=== PATIENT | male | born 1965 | race Caucasian/White ===

== ENCOUNTER 2017-11-30 11:42 | Outpatient (CLI) | payer BC ==
--- NOTE | 2017-11-30 14:54 | Ultrasound Report ---
ULTRASOUND RENAL BILATERAL HISTORY: Calculus of kidney. TECHNIQUE: transabdominal ultrasound with color Doppler interrogation. FINDINGS: The right kidney measures 11.1cm. Right renal cortex: 1.3cm. The left kidney measures 11.6cm. Left renal cortex: 1.5cm. Scans of the kidneys show normal renal contours. There is normal central calyceal clustering and good preservation of the cortical thickness. There is no evidence of mass or hydronephrosis. The views of the bladder and the region of the ureters appear normal. IMPRESSION: Unremarkable renal ultrasound.
--- NOTE | 2017-11-30 19:33 | XRay Report ---
FINAL REPORT EXAM: XR ABDOMEN 1V AP HISTORY: CALCULUS OF KIDNEY TECHNIQUE: Supine abdomen PRIORS: None. FINDINGS: Moderate amount of stool and gas present within the colon. No evidence of colonic or small bowel dilatation. No signs of free air. No abnormal calcifications are identified. Rounded calcifications in the lower pelvis appear most likely phleboliths. IMPRESSION: Nonobstructive bowel gas pattern. No acute abnormality seen.
== END 2017-11-30 11:43 | disposition home or self-care (01) ==
LOC: XRAY 11:42
PROVIDERS: ATTEND Urology
DX: N20.0 Calculus of kidney (principal)
CPT/HCPCS: 74018; 76770

== ENCOUNTER 2019-04-09 08:48 | Outpatient (CLI) | payer BC ==
[2019-04-09 09:04] LABS: Basophils % (Auto) 0.7 % (0.0-1.8); Eosinophils # (Auto) 0.2 K/mm3 (0.0-0.4); Eosinophils % (Auto) 2.9 % (0.0-4.3); Hemoglobin 14.1 gm/dl (11.8-15.2); Lymphocytes # (Auto) 1.7 K/mm3 (1.2-5.4); Lymphocytes % (Auto) 30.2 % (13.4-35.0); Mean Corpuscular HGB Conc 34 % (32-34); Mean Corpuscular Volume 79 fl (84-94); Monocytes # (Auto) 0.5 K/mm3 (0.0-0.8); Monocytes % (Auto) 9.3 % (0.0-7.3); Platelet Count 216 K/mm3 (140-440); Red Blood Count 5.32 M/mm3 (3.65-5.03); Red Cell Distribution Width 14.5 % (13.2-15.2)
[2019-04-09 09:25] LABS: Alanine Aminotransferase 38 units/L (7-56); Albumin 4.4 g/dL (3.9-5); BUN/Creatinine Ratio 12; Blood Urea Nitrogen 12 mg/dL (9-20); Chol/HDL Ratio 3.08 %; HDL Cholesterol 46 mg/dL (40-59); Hemolysis Index 5; LDL Cholesterol,Direct 80 mg/dL (50-130)
== END 2019-04-09 08:49 | disposition home or self-care (01) ==
LOC: LAB 08:48
PROVIDERS: ATTEND Nurse Practitioner Family
DX: Z12.5 Encounter for screening for malignant neoplasm of prostate (principal); I10 Essential (primary) hypertension; E78.2 Mixed hyperlipidemia
CPT/HCPCS: 36415; 80053; 80061; 84153; 85025

== ENCOUNTER 2019-07-03 11:35 | Emergency (ER) | payer BC ==
--- NOTE | 2019-07-03 12:00 | Event Note ---
ED Screening Note Date of service: 07/03/19 Time: 11:59 ED Screening Note: PMH of kidney stone presenst with flank pain This initial assessment/diagnostic orders/clinical plan/treatment(s) is/are subject to change based on patients health status, clinical progression and re- assessment by fellow clinical providers in the ED. Further treatment and workup at subsequent clinical providers discretion. Patient/guardian urged not to elope from the ED as their condition may be serious if not clinically assessed and managed. Initial orders include: labs CT
[2019-07-03 12:14] LABS: Bilirubin,Urine NEG (Negative); Blood,Urine MOD (Negative); Color,Urine Yellow (Yellow); Mucus,Urine FEW /HPF; Protein,Urine <15 mg/dL mg/dL (Negative); Urobilinogen,Urine < 2.0 mg/dL (<2.0)
[2019-07-03 12:23] LABS: Basophils % (Auto) 0.6 % (0.0-1.8); Eosinophils # (Auto) 0.2 K/mm3 (0.0-0.4); Eosinophils % (Auto) 2.5 % (0.0-4.3); Hemoglobin 14.1 gm/dl (11.8-15.2); Lymphocytes # (Auto) 1.4 K/mm3 (1.2-5.4); Lymphocytes % (Auto) 20.1 % (13.4-35.0); Mean Corpuscular HGB Conc 34 % (32-34); Mean Corpuscular Volume 79 fl (84-94); Monocytes # (Auto) 0.5 K/mm3 (0.0-0.8); Monocytes % (Auto) 7.3 % (0.0-7.3); Platelet Count 210 K/mm3 (140-440); Red Blood Count 5.31 M/mm3 (3.65-5.03); Red Cell Distribution Width 14.1 % (13.2-15.2)
[2019-07-03 12:40] LABS: BUN/Creatinine Ratio 9; Blood Urea Nitrogen 9 mg/dL (9-20); Calcium 9.9 mg/dL (8.4-10.2); Hemolysis Index 2
[2019-07-03] MEDS ORDERED: NORCO 10/325 PO ONE (13:07)
[2019-07-03] MEDS ORDERED: ZOFRAN ODT PO ONE (13:07)
--- NOTE | 2019-07-03 13:42 | Cat Scan Report ---
CT ABDOMEN AND PELVIS WITHOUT CONTRAST INDICATION: Unspecified abdominal pain. History of kidney stones. COMPARISON: KUB from 11/30/2017. CT abdomen and pelvis without contrast from 02/17/2016. TECHNIQUE: Axial, coronal and sagittal CT imaging of the abdomen and pelvis was performed without co ntrast. Lack of intravenous contrast limits evaluation of the vascular and solid organs. All CT sca ns at this location are performed using CT dose reduction for ALARA by means of automated exposure co ntrol. FINDINGS: LOWER CHEST: No significant abnormality. LIVER: No significant abnormality. BILIARY: No significant abnormality. PANCREAS: No significant abnormality. SPLEEN: No significant abnormality. ADRENALS: No significant abnormality. KIDNEYS AND URETERS: Along the mid pole of the right kidney is a stone measuring 4 mm. Left renal sto [place] measure up to 2 mm. No ureteral stones are seen. There is no hydroureteronephrosis. No suspicious renal lesions are visualized. GI TRACT: No significant abnormality of the stomach, small bowel or colon. Unremarkable appendix. PERITONEUM: No free fluid. No free air. No fluid collection. LYMPH NODES: No significant adenopathy. VASCULATURE: The aorta is normal in caliber and mildly calcified. URINARY BLADDER: No significant abnormality. REPRODUCTIVE ORGANS: No significant abnormality. ADDITIONAL FINDINGS: None. SKELETAL SYSTEM: No acute abnormality. Degenerative changes are present along the spine and pelvis. IMPRESSION: 1. Nonobstructive bilateral renal stones. 2. Additional findings as above. Signer Name: Km Ortez MD Signed: 07/03/2019 1:38 PM Workstation Name: [id number]
--- NOTE | 2019-07-03 13:58 | Emergency Department Report ---
ED General Adult HPI - General Chief complaint: Abdominal Pain Stated complaint: KIDNEY STONE Time Seen by Provider: 07/03/19 11:54 Source: patient Mode of arrival: Ambulatory Limitations: No Limitations - History of Present Illness Initial comments: She presents to the emergency department with a chief complaint of left flank pain that radiates into his left long. Patient describes the pain as colicky and sharp in nature and intermittent. Patient has a history of kidney stones and states this feels like previous ones. Patient did have some nausea but denies vomiting. Patient does follow with a neurologist -: Sudden Location: back, left Radiation: abdomen Severity scale (0 -10): 2 Quality: stabbing, sharp Consistency: intermittent, colicky Improves with: none Worsens with: none Associated Symptoms: denies other symptoms Treatments Prior to Arrival: none - Related Data Home Medications Medication Instructions Recorded Confirmed Last Taken Aspirin [Aspirin BABY CHEW TAB] 81 mg PO QDAY 02/17/16 02/17/16 Unknown Ciprofloxacin [Ciprofloxacin ORAL 500 mg PO Q12H 02/17/16 02/17/16 Unknown LIQ] Metoprolol [Lopressor] 100 mg PO ONCE 02/17/16 02/17/16 Unknown Rosuvastatin Calcium [Crestor] 40 mg PO ONCE 02/17/16 02/17/16 Unknown Previous Rx's Medication Instructions Recorded Last Taken Type traMADol [Ultram 50 MG tab] 50 mg PO Q6HR PRN #14 tablet 02/17/16 Unknown Rx HYDROcodone/APAP 5-325 [[place] 1 each PO Q6HR PRN #12 tablet 07/03/19 Unknown Rx 5/325] Ondansetron [Zofran Odt] 4 mg PO Q4HR PRN #20 tab.rapdis 07/03/19 Unknown Rx Allergies Allergy/AdvReac Type Severity Reaction Status Date / Time acetaminophen [From Percocet] AdvReac Unknown Verified 02/17/16 01:13 iodine AdvReac Unknown Verified 02/17/16 01:14 oxycodone HCl [From Percocet] AdvReac Unknown Verified 02/17/16 01:13 shellfish derived AdvReac Unknown Verified 02/17/16 01:14 ED Review of Systems ROS: Stated complaint: KIDNEY STONE Other details as noted in HPI Comment: All other systems reviewed and negative Constitutional: denies: chills, fever Eyes: denies: eye pain, eye discharge, vision change ENT: denies: ear pain, throat pain Respiratory: denies: cough, shortness of breath, wheezing Cardiovascular: denies: chest pain, palpitations Endocrine: no symptoms reported Gastrointestinal: denies: abdominal pain, nausea, diarrhea Genitourinary: denies: urgency, dysuria Musculoskeletal: denies: back pain, joint swelling, arthralgia Skin: denies: rash, lesions Neurological: denies: headache, weakness, paresthesias Psychiatric: denies: anxiety, depression Hematological/Lymphatic: denies: easy bleeding, easy bruising ED Past Medical Hx - Past Medical History Hx Hypertension: Yes Hx Heart Attack/AMI: Yes Hx Diabetes: Yes Hx Kidney Stones: Yes Additional medical history: GLAUCOMA. HIGH CHOLESTEROL - Surgical History Additional Surgical History: HERNIA REPAIR - Social History Smoking Status: Never Smoker Substance Use Type: None - Medications Home Medications: Home Medications Medication Instructions Recorded Confirmed Last Taken Type Aspirin [Aspirin BABY CHEW TAB] 81 mg PO QDAY 02/17/16 02/17/16 Unknown History Ciprofloxacin [Ciprofloxacin ORAL 500 mg PO Q12H 02/17/16 02/17/16 Unknown History LIQ] Metoprolol [Lopressor] 100 mg PO ONCE 02/17/16 02/17/16 Unknown History Rosuvastatin Calcium [Crestor] 40 mg PO ONCE 02/17/16 02/17/16 Unknown History traMADol [Ultram 50 MG tab] 50 mg PO Q6HR PRN #14 tablet 02/17/16 Unknown Rx HYDROcodone/APAP 5-325 [[place] 1 each PO Q6HR PRN #12 tablet 07/03/19 Unknown Rx 5/325] Ondansetron [Zofran Odt] 4 mg PO Q4HR PRN #20 tab.rapdis 07/03/19 Unknown Rx ED Physical Exam - General Limitations: No Limitations General appearance: alert, in no apparent distress - Head Head exam: Present: atraumatic, normocephalic - Eye Eye exam: Present: normal appearance, PERRL, EOMI - ENT ENT exam: Present: mucous membranes moist - Neck Neck exam: Present: normal inspection - Respiratory Respiratory exam: Present: normal lung sounds bilaterally. Absent: respiratory distress, wheezes, rales - Cardiovascular Cardiovascular Exam: Present: regular rate, normal rhythm. Absent: systolic murmur, diastolic murmur, rubs, gallop - GI/Abdominal GI/Abdominal exam: Present: soft, normal bowel sounds - Rectal Rectal exam: Present: deferred - Extremities Exam Extremities exam: Present: normal inspection - Back Exam Back exam: Present: normal inspection - Neurological Exam Neurological exam: Present: alert, oriented X3, CN II-XII intact. Absent: motor sensory deficit - Psychiatric Psychiatric exam: Present: normal affect, normal mood - Skin Skin exam: Present: warm, dry, intact, normal color. Absent: rash ED Course Vital Signs 07/03/19 11:41 Temperature 98.9 F Pulse Rate 89 Respiratory 18 Rate Blood Pressure 158/82 O2 Sat by Pulse 98 Oximetry ED Medical Decision Making - Lab Data Result diagrams: 07/03/19 12:10 07/03/19 12:10 Lab Results 07/03/19 07/03/19 07/03/19 Range/Units 11:57 12:10 12:10 WBC 6.9 (4.5-11.0) K/mm3 RBC 5.31 H (3.65-5.03) M/mm3 Hgb 14.1 (11.8-15.2) gm/dl Hct 42.0 (35.5-45.6) % MCV 79 L (84-94) fl MCH 27 L (28-32) pg MCHC 34 (32-34) % RDW 14.1 (13.2-15.2) % Plt Count 210 (140-440) K/mm3 Lymph % (Auto) 20.1 (13.4-35.0) % [place] % (Auto) 7.3 (0.0-7.3) % Eos % (Auto) 2.5 (0.0-4.3) % Baso % (Auto) 0.6 (0.0-1.8) % Lymph # 1.4 (1.2-5.4) K/mm3 [place] # 0.5 (0.0-0.8) K/mm3 Eos # 0.2 (0.0-0.4) K/mm3 Baso # 0.0 (0.0-0.1) K/mm3 Seg Neutrophils % 69.5 (40.0-70.0) % Seg Neutrophils # 4.8 (1.8-7.7) K/mm3 Sodium 140 (137-145) mmol/L Potassium 4.0 (3.6-5.0) mmol/L Chloride 101.0 (98-107) mmol/L Carbon Dioxide 27 (22-30) mmol/L Anion Gap 16 mmol/L BUN 9 (9-20) mg/dL Creatinine 1.0 (0.8-1.5) mg/dL Estimated GFR > 60 ml/min BUN/Creatinine Ratio 9 % Glucose 188 H (75-100) mg/dL Calcium 9.9 (8.4-10.2) mg/dL Urine Color Yellow (Yellow) Urine Turbidity Clear (Clear) Urine pH 5.0 (5.0-7.0) Ur Specific [place] 1.021 (1.003-1.030) Urine Protein <15 mg/dl (Negative) mg/dL Urine Glucose (UA) Neg (Negative) mg/dL Urine Ketones Neg (Negative) mg/dL Urine Blood Mod (Negative) Urine Nitrite Neg (Negative) Urine Bilirubin Neg (Negative) Urine Urobilinogen < 2.0 (<2.0) mg/dL Ur Leukocyte Esterase Neg (Negative) Urine WBC (Auto) 2.0 (0.0-6.0) /HPF Urine RBC (Auto) 27.0 (0.0-6.0) /HPF U Epithel Cells (Auto) 1.0 (0-13.0) /HPF Urine Mucus Few /HPF - Radiology Data Radiology results: report reviewed - Medical Decision Making discussed results with patient Critical care attestation.: If time is entered above; I have spent that time in minutes in the direct care of this critically ill patient, excluding procedure time. ED Disposition Clinical Impression: Renal colic on left side Disposition: DC- TO HOME OR SELFCARE Is pt being admited?: No Does the pt Need Aspirin: No Condition: Stable Instructions: Renal Colic (ED) Additional Instructions: return if worse Referrals: OMARI HENDRIX MD [Primary Care Provider] - 3-5 Days LUISA WEST MD [Staff Physician] - 3-5 Days Time of Disposition: 14:33
[2019-07-03 14:54] VITALS: BP 154/90
== END 2019-07-03 14:53 | disposition home or self-care (01) ==
LOC: ED 11:35
DX: N20.0 Calculus of kidney (principal); I10 Essential (primary) hypertension; E11.9 Type 2 diabetes mellitus without complications; Z87.442 Personal history of urinary calculi; E78.00 Pure hypercholesterolemia, unspecified; Z98.890 Other specified postprocedural states; Z88.5 Allergy status to narcotic agent; Z91.013 Allergy to seafood; Z91.041 Radiographic dye allergy status; Z79.82 Long term (current) use of aspirin; Z79.899 Other long term (current) drug therapy
CPT/HCPCS: 36415; 74176; 80048; 81001; 85025; 99284; Q0162

== ENCOUNTER 2019-10-08 09:09 | Outpatient (CLI) | payer BC ==
[2019-10-08 09:32] LABS: Basophils # (Auto) 0.1 K/mm3 (0.0-0.1); Basophils % (Auto) 0.9 % (0.0-1.8); Eosinophils # (Auto) 0.2 K/mm3 (0.0-0.4); Eosinophils % (Auto) 3.6 % (0.0-4.3); Hematocrit 41.9 % (35.5-45.6); Lymphocytes # (Auto) 1.7 K/mm3 (1.2-5.4); Lymphocytes % (Auto) 28.4 % (13.4-35.0); Mean Corpuscular HGB Conc 33 % (32-34); Mean Corpuscular Volume 80 fl (84-94); Monocytes # (Auto) 0.5 K/mm3 (0.0-0.8); Monocytes % (Auto) 8.1 % (0.0-7.3); Platelet Count 192 K/mm3 (140-440); Red Blood Count 5.25 M/mm3 (3.65-5.03); Red Cell Distribution Width 14.1 % (13.2-15.2)
[2019-10-08 09:45] LABS: Alanine Aminotransferase 50 units/L (7-56); Albumin 4.2 g/dL (3.9-5); BUN/Creatinine Ratio 12; Blood Urea Nitrogen 11 mg/dL (9-20); Calcium 9.9 mg/dL (8.4-10.2); HDL Cholesterol 43 mg/dL (40-59); Hemolysis Index 11; LDL Cholesterol,Direct 90 mg/dL (50-130)
[2019-10-08 11:15] LABS: Creatinine,Urine 196.2 mg/dL (0.1-20.0)
[2019-10-08 11:16] LABS: Microalbumin/Creatinine Ratio 7.1 ug/mg
== END 2019-10-08 09:10 | disposition home or self-care (01) ==
LOC: LAB 09:09
PROVIDERS: ATTEND Nurse Practitioner Family
DX: E78.2 Mixed hyperlipidemia (principal); I10 Essential (primary) hypertension; E11.9 Type 2 diabetes mellitus without complications
CPT/HCPCS: 36415; 80053; 80061; 82043; 85025

== ENCOUNTER 2019-11-18 11:02 | Outpatient (CLI) | payer BC | END 2019-11-18 11:03 | disposition home or self-care (01) | LOC: CARD 11:02 | PROVIDERS: ATTEND Internal Medicine | DX: Z00.00 Encounter for general adult medical examination without abnormal findings (principal) | CPT/HCPCS: 93005; 93010 ==

== ENCOUNTER 2019-11-20 08:02 | Outpatient (CLI) | payer BC ==
[2019-11-20 08:28] LABS: Basophils % (Auto) 0.6 % (0.0-1.8); Eosinophils # (Auto) 0.2 K/mm3 (0.0-0.4); Eosinophils % (Auto) 3.5 % (0.0-4.3); Hematocrit 43.5 % (35.5-45.6); Hemoglobin 14.7 gm/dl (11.8-15.2); Lymphocytes # (Auto) 1.8 K/mm3 (1.2-5.4); Lymphocytes % (Auto) 27.4 % (13.4-35.0); Mean Corpuscular HGB Conc 34 % (32-34); Mean Corpuscular Volume 80 fl (84-94); Monocytes # (Auto) 0.7 K/mm3 (0.0-0.8); Monocytes % (Auto) 10.5 % (0.0-7.3); Platelet Count 226 K/mm3 (140-440); Red Blood Count 5.45 M/mm3 (3.65-5.03); Red Cell Distribution Width 13.9 % (13.2-15.2)
[2019-11-20 08:35] LABS: Bilirubin,Urine NEG (Negative); Blood,Urine NEG (Negative); Color,Urine Yellow (Yellow); Protein,Urine <15 mg/dL mg/dL (Negative); Urobilinogen,Urine < 2.0 mg/dL (<2.0)
[2019-11-20 08:59] LABS: Alanine Aminotransferase 55 units/L (7-56); Albumin 4.3 g/dL (3.9-5); BUN/Creatinine Ratio 13; Blood Urea Nitrogen 12 mg/dL (9-20); Calcium 9.9 mg/dL (8.4-10.2); Chol/HDL Ratio 3.04 %; HDL Cholesterol 44 mg/dL (40-59); Hemolysis Index 2; LDL Cholesterol,Direct 81 mg/dL (50-130)
--- NOTE | 2019-11-20 11:14 | Vascular Lab Report ---
Retroperitoneal Doppler HISTORY: Pulsatile abdominal mass. FINDINGS: Ultrasound of the retroperitoneum was performed. The aorta measures 2.6 cm proximally and t apers to 2.1 cm distally. Right iliac measures 1.2 cm. Left iliac measures 1.1 cm. Flow is present at all sites. Negative for retroperitoneal mass. IMPRESSION: Atherosclerotic ectasia of the aortoiliac system. Signer Name: Jose Newman MD Signed: 11/20/2019 11:10 AM Workstation Name: [id number]
== END 2019-11-20 08:03 | disposition home or self-care (01) ==
LOC: VAS 08:02
PROVIDERS: ATTEND Internal Medicine
DX: I77.811 Abdominal aortic ectasia (principal); R19.00 Intra-abdominal and pelvic swelling, mass and lump, unspecified site
CPT/HCPCS: 36415; 80053; 80061; 81001; 84153; 84443; 85025; 93979

== ENCOUNTER 2020-04-07 09:01 | Outpatient (CLI) | payer BC ==
[2020-04-07 09:41] LABS: Basophils % (Auto) 0.5 % (0.0-1.8); Eosinophils # (Auto) 0.2 K/mm3 (0.0-0.4); Eosinophils % (Auto) 2.9 % (0.0-4.3); Hematocrit 41.7 % (35.5-45.6); Hemoglobin 13.9 gm/dl (11.8-15.2); Lymphocytes # (Auto) 1.7 K/mm3 (1.2-5.4); Lymphocytes % (Auto) 25.7 % (13.4-35.0); Mean Corpuscular HGB Conc 33 % (32-34); Mean Corpuscular Volume 80 fl (84-94); Monocytes # (Auto) 0.5 K/mm3 (0.0-0.8); Monocytes % (Auto) 8.1 % (0.0-7.3); Platelet Count 225 K/mm3 (140-440); Red Blood Count 5.22 M/mm3 (3.65-5.03)
[2020-04-07 10:07] LABS: Alanine Aminotransferase 30 units/L (7-56); Albumin 4.5 g/dL (3.9-5); BUN/Creatinine Ratio 18; Blood Urea Nitrogen 18 mg/dL (9-20); Chol/HDL Ratio 2.79 %; HDL Cholesterol 48 mg/dL (40-59); Hemolysis Index 5; LDL Cholesterol,Direct 77 mg/dL (50-130)
[2020-04-07 10:25] LABS: Bilirubin,Urine NEG (Negative); Blood,Urine MOD (Negative); Color,Urine Yellow (Yellow); Mucus,Urine FEW /HPF; Protein,Urine <15 mg/dL mg/dL (Negative); Urobilinogen,Urine < 2.0 mg/dL (<2.0)
[2020-04-07 10:38] LABS: Creatinine,Urine 152.1 mg/dL (0.1-20.0); Microalbumin/Creatinine Ratio 17.7 ug/mg
== END 2020-04-07 09:02 | disposition home or self-care (01) ==
LOC: LAB 09:01
PROVIDERS: ATTEND Internal Medicine
DX: E11.9 Type 2 diabetes mellitus without complications (principal); I10 Essential (primary) hypertension; E78.2 Mixed hyperlipidemia; R35.0 Frequency of micturition
CPT/HCPCS: 36415; 80053; 80061; 81001; 82043; 85025; 87086

== ENCOUNTER 2020-05-16 16:24 | Emergency (ER) | payer BC ==
[2020-05-16] MEDS ORDERED: ONDANSETRON 4 MG/2 ML INJ IV ONE (16:53)
[2020-05-16] MEDS ORDERED: MORPHINE 4 MG/1 ML INJ IV ONE (16:53)
[2020-05-16] MEDS ORDERED: SODIUM CHLORIDE 0.9% 1000 ML 1,000 ML IV ONE (16:53)
[2020-05-16] MEDS ORDERED: diphenhydrAMINE 50 MG/ML VIAL IV STA (16:54)
[2020-05-16 17:12] LABS: Basophils % (Auto) 0.5 % (0.0-1.8); Eosinophils # (Auto) 0.2 K/mm3 (0.0-0.4); Eosinophils % (Auto) 1.9 % (0.0-4.3); Hematocrit 40.3 % (35.5-45.6); Hemoglobin 13.3 gm/dl (11.8-15.2); Lymphocytes # (Auto) 1.7 K/mm3 (1.2-5.4); Lymphocytes % (Auto) 19.4 % (13.4-35.0); Mean Corpuscular HGB Conc 33 % (32-34); Mean Corpuscular Volume 80 fl (84-94); Monocytes # (Auto) 0.7 K/mm3 (0.0-0.8); Monocytes % (Auto) 8.5 % (0.0-7.3); Platelet Count 214 K/mm3 (140-440); Red Blood Count 5.02 M/mm3 (3.65-5.03)
[2020-05-16] MEDS ORDERED: fentaNYL 100 MCG/2 ML INJ IV ONE (17:30)
[2020-05-16 17:40] LABS: BUN/Creatinine Ratio 11; Blood Urea Nitrogen 13 mg/dL (9-20); Calcium 9.4 mg/dL (8.4-10.2); Hemolysis Index 76
--- NOTE | 2020-05-16 18:06 | Cat Scan Report ---
CT abdomen pelvis wo con INDICATION / CLINICAL INFORMATION: Abdominal pain, history of kidney stones. TECHNIQUE: Axial CT imaging of abdomen and pelvis was obtained without contrast. Coronal and sagittal reformatte d imaging obtained and reviewed. All CT scans at this location are performed using CT dose reduction for ALARA by means of automated exposure control. COMPARISON: Most recent CT abdomen/pelvis, 05/04/2020 FINDINGS: CT abdomen without contrast demonstrates grossly normal appearance of the liver, spleen, pancreas, ri ght kidney, and adrenal glands. No obvious gallbladder pathology noted. There continues to be mild hydronephrosis due to the presence of a large calculus in the distal right ureter at the UVJ level. Calculus has moved slightly inferior compared to the most recent CT scan. C alculus measures 7 mm in diameter. The degree of hydronephrosis appears slightly worse and there is i ncreased perinephric inflammatory change compared with the prior study. There are a few punctate intr arenal calculi also noted. CT pelvis without contrast shows no additional significant abnormality. No pelvic mass or free fluid. Scattered mild diverticulosis of the sigmoid colon is incidentally noted. The remainder of the GI tr act is normal. Normal appendix is seen in the right lower quadrant. Visualized lung bases show no acute pulmonary or pleural disease. No significant osseous abnormality noted other than minimal spondylitic change. IMPRESSION: 1. Worsening left hydronephrosis and perinephric inflammatory change due to obstructing 7 mm calculus in the distal left ureter at the UVJ. Calculus has advanced inferiorly slightly since the most recen t CT of 05/04/2020. 2. No other significant interval change from prior CT scan. Signer Name: Vonnie Barriga MD Signed: 05/16/2020 6:01 PM Workstation Name: [id number]
--- NOTE | 2020-05-16 18:21 | Emergency Department Report ---
ED Male HPI - General Chief complaint: Abdominal Pain Stated complaint: KIDNEY STONES Time Seen by Provider: 05/16/20 16:53 Source: patient Mode of arrival: Ambulatory Limitations: No Limitations - History of Present Illness Initial comments: 55-year-old male currently under the care of Dr. Noble urology for kidney stone presents emergency department complaining of reemerging pain due to the kidney stone. He was taking his Toradol which was prescribed by the urologist at home. He was advised that he is to strain his urine and hopes to passed a stone but over the last 2 months his still been unable to void that stone. Last CAT scan was about 2 weeks ago. Reports no fevers chills or sweats no chest pain or palpitation does report fluctuating left flank pain which radiates to his left lower quadrant Radiation: none Severity: moderate, severe Quality: sharp Consistency: constant Improves with: none Worsens with: none, urination denies: discharge, urinary retention, nausea/vomiting, incontinence - Related Data Home Medications Medication Instructions Recorded Confirmed Last Taken Aspirin [Aspirin BABY CHEW TAB] 81 mg PO QDAY 02/17/16 02/17/16 Unknown Ciprofloxacin [Ciprofloxacin ORAL 500 mg PO Q12H 02/17/16 02/17/16 Unknown LIQ] Metoprolol [Lopressor] 100 mg PO ONCE 02/17/16 02/17/16 Unknown Rosuvastatin Calcium [Crestor] 40 mg PO ONCE 02/17/16 02/17/16 Unknown Previous Rx's Medication Instructions Recorded Last Taken Type HYDROcodone/APAP 5-325 [[place] 1 each PO Q6HR PRN #12 tablet 07/03/19 Unknown Rx 5/325] Ondansetron [Zofran Odt] 4 mg PO Q4HR PRN #20 tab.rapdis 07/03/19 Unknown Rx traMADoL [Ultram 50 MG tab] 50 mg PO Q6HR PRN #14 tablet 05/16/20 Unknown Rx Allergies Allergy/AdvReac Type Severity Reaction Status Date / Time acetaminophen [From Percocet] AdvReac Unknown Verified 02/17/16 01:13 iodine AdvReac Unknown Verified 02/17/16 01:14 oxycodone HCl [From Percocet] AdvReac Unknown Verified 02/17/16 01:13 shellfish derived AdvReac Unknown Verified 02/17/16 01:14 ED Review of Systems ROS: Stated complaint: KIDNEY STONES Other details as noted in HPI Comment: All other systems reviewed and negative ED Past Medical Hx - Past Medical History Previous Medical History?: Yes Hx Hypertension: Yes Hx Heart Attack/AMI: Yes Hx Diabetes: Yes Hx Kidney Stones: Yes Additional medical history: GLAUCOMA. HIGH CHOLESTEROL - Surgical History Past Surgical History?: Yes Additional Surgical History: HERNIA REPAIR - Social History Smoking Status: Never Smoker Substance Use Type: None - Medications Home Medications: Home Medications Medication Instructions Recorded Confirmed Last Taken Type Aspirin [Aspirin BABY CHEW TAB] 81 mg PO QDAY 02/17/16 02/17/16 Unknown History Ciprofloxacin [Ciprofloxacin ORAL 500 mg PO Q12H 02/17/16 02/17/16 Unknown History LIQ] Metoprolol [Lopressor] 100 mg PO ONCE 02/17/16 02/17/16 Unknown History Rosuvastatin Calcium [Crestor] 40 mg PO ONCE 02/17/16 02/17/16 Unknown History HYDROcodone/APAP 5-325 [[place] 1 each PO Q6HR PRN #12 tablet 07/03/19 Unknown Rx 5/325] Ondansetron [Zofran Odt] 4 mg PO Q4HR PRN #20 tab.rapdis 07/03/19 Unknown Rx traMADoL [Ultram 50 MG tab] 50 mg PO Q6HR PRN #14 tablet 05/16/20 Unknown Rx ED Physical Exam - General Limitations: No Limitations General appearance: alert, in no apparent distress - Head Head exam: Present: atraumatic, normocephalic - Eye Eye exam: Present: normal appearance - ENT ENT exam: Present: mucous membranes moist - Neck Neck exam: Present: normal inspection - Respiratory Respiratory exam: Present: normal lung sounds bilaterally. Absent: respiratory distress - Cardiovascular Cardiovascular Exam: Present: regular rate, normal rhythm. Absent: systolic murmur, diastolic murmur, rubs, gallop - GI/Abdominal GI/Abdominal exam: Present: soft, normal bowel sounds - Rectal Rectal exam: Present: deferred - Extremities Exam Extremities exam: Present: normal inspection, normal capillary refill - Back Exam Back exam: Present: normal inspection, CVA tenderness (L) - Neurological Exam Neurological exam: Present: alert, oriented X3, CN II-XII intact, normal gait - Psychiatric Psychiatric exam: Present: normal affect, normal mood - Skin Skin exam: Present: warm, dry, intact, normal color. Absent: rash ED Course Vital Signs 05/16/20 16:32 Temperature 98.5 F Pulse Rate 82 Respiratory 20 Rate Blood Pressure 157/68 O2 Sat by Pulse 96 Oximetry ED Medical Decision Making - Lab Data Result diagrams: 05/16/20 16:58 05/16/20 16:58 - Radiology Data Radiology results: report reviewed [facility] [address] [place] [address] Cat Scan Report Signed Patient: LAYTON MERIDA MR#: [id number] : 1965 Acct:[id number] Age/Sex: 55 / M ADM Date: 05/16/20 Loc: ED Attending Dr: Ordering Physician: IVY MORRIS Date of Service: 05/16/20 Procedure(s): CT abdomen pelvis wo con Accession Number(s): [id number] cc: IVY MORRIS CT abdomen pelvis wo con INDICATION / CLINICAL INFORMATION: Abdominal pain, history of kidney stones. TECHNIQUE: Axial CT imaging of abdomen and pelvis was obtained without contrast. Coronal and sagittal reformatted imaging obtained and reviewed. All CT scans at this location are performed using CT dose reduction for ALARA by means of automated exposure control. COMPARISON: Most recent CT abdomen/pelvis, 05/04/2020 FINDINGS: CT abdomen without contrast demonstrates grossly normal appearance of the liver, spleen, pancreas, right kidney, and adrenal glands. No obvious gallbladder pathology noted. There continues to be mild hydronephrosis due to the presence of a large calculus in the distal right ureter at the UVJ level. Calculus has moved slightly inferior compared to the most recent CT scan. Calculus measures 7 mm in diameter. The degree of hydronephrosis appears slightly worse and there is increased perinephric inflammatory change compared with the prior study. There are a few punctate intrarenal calculi also noted. CT pelvis without contrast shows no additional significant abnormality. No pelvic mass or free fluid. Scattered mild diverticulosis of the sigmoid colon is incidentally noted. The remainder of the GI tract is normal. Normal appendix is seen in the right lower quadrant. Visualized lung bases show no acute pulmonary or pleural disease. No significant osseous abnormality noted other than minimal spondylitic change. IMPRESSION: 1. Worsening left hydronephrosis and perinephric inflammatory change due to obstructing 7 mm calculus in the distal left ureter at the UVJ. Calculus has advanced inferiorly slightly since the most recent CT of 05/04/2020. 2. No other significant interval change from prior CT scan. Signer Name: Vonnie Barriga MD Signed: 05/16/2020 6:01 PM Workstation Name: [id number] Transcribed By: JR Dictated By: Vonnie Barriga MD Electronically Authenticated By: Vonnie Barriga MD Signed Date/Time: 05/16/201800 DD/ 56 TD/TT: - Medical Decision Making Clinically the patient presents with nephrolithasis. IV pain medications, antiemetics, and IV fluids were given. A CT Abdomen/Pelvis was obtained for concern for a possible obstructing kidney stone and to rule out other pathologic conditions. The CT confirmed revealed a 7 mm stone at the left ureter which was more anterior than that of previous but have the hydronephrosis and worsen.. The patient's labs were significant for normal renal function and no leukocytosis. With pain medication the patient improved significantly. The patient is referred to the back to his urologist urologist for follow up and already has an appointment scheduled for this Monday at 2 PM and is discharged with oral narcotics for pain control, Flomax, antiemetics, and given the following return precautions: Fever > 100.5, pain not controlled with narcotics, vomiting or any other concerns and to strain the urine Critical care attestation.: If time is entered above; I have spent that time in minutes in the direct care of this critically ill patient, excluding procedure time. ED Disposition Clinical Impression: Left renal stone Disposition: - TO HOME OR SELFCARE Is pt being admited?: No Does the pt Need Aspirin: No Condition: Stable Instructions: Flank Pain (ED), How to Strain Your Urine (ED), Kidney Stones (ED) Prescriptions: traMADoL [Ultram 50 MG tab] 50 mg PO Q6HR PRN #14 tablet PRN Reason: Pain Referrals: LUISA WEST MD [Staff Physician] - 3-5 Days
[2020-05-16 19:55] VITALS: BP 149/78
== END 2020-05-16 19:15 | disposition home or self-care (01) ==
LOC: ED 16:24
DX: N20.0 Calculus of kidney (principal); I10 Essential (primary) hypertension; I25.2 Old myocardial infarction; E11.9 Type 2 diabetes mellitus without complications; E78.5 Hyperlipidemia, unspecified
CPT/HCPCS: 36415; 74176; 80048; 85025; 96374; 96375; 99284; J1200; J2270; J2405; J3010; J7030

== ENCOUNTER 2020-05-20 09:34 | Day surgery (SDC) | payer BC ==
[~2020-05-20 09:34] MED LIST: LACTATED RINGERS 1,000 ML IV SCH; MIDAZOLAM 2 MG/2 ML INJ IV NR
[2020-05-20] MEDS ORDERED: LIDOCAINE MPF (2%) 20 MG/1 ML VIAL 5 ML ONE (10:16)
[2020-05-20] MEDS ORDERED: HYDROmorphone 1 MG/1 ML INJ ONE (10:16)
[2020-05-20] MEDS ORDERED: propofoL 200 MG/20 ML VIAL IV ONE (10:16)
--- NOTE | 2020-05-20 10:38 | Anesthesia Day of Surgery ---
Anesthesia Day of Surgery - Day of Surgery Patient Examined: Yes Patient H&P Reviewed: Yes Patient is NPO: Yes Beta Blockers: Yes
--- NOTE | 2020-05-20 10:38 | Anesthesia Consultation ---
Anesthesia Consult and Med Hx Date of service: 05/20/20 - Airway Anesthetic Teeth Evaluation: Good ROM Head & Neck: Adequate Mental/Hyoid Distance: Adequate Mallampati Class: Class III Intubation Access Assessment: Possibly Difficult - Pre-Operative Health Status ASA Pre-Surgery Classification: ASA3 Proposed Anesthetic Plan: General - Pulmonary Hx Smoking: No Hx Sleep Apnea: Yes (undiagnosed SANDRA, PRE SCREEN HIGH RISK) - Cardiovascular System Hx Hypertension: Yes (2005) Hx Heart Attack/AMI: Yes (2005) Hx Angina: No Hx Percutaneous Transluminal Coronary Angioplasty (PTCA): No - Central Nervous System Hx Back Pain: Yes (FROM STONE) - Endocrine Hx Non-Insulin Dependent Diabetes: Yes - Other Systems Hx Cancer: No Hx Obesity: Yes (BMI 37.5)
[2020-05-20] MEDS ORDERED: ceFAZolin/STERILE WATER 2 GM/20 ML SYRINGE IV NR (12:05)
[2020-05-20] MEDS ORDERED: IOHEXOL 300 MG/ML 50ML IV ONE (12:57)
[2020-05-20] MEDS ORDERED: diphenhydrAMINE 50 MG/ML VIAL ONE (13:13)
[2020-05-20] MEDS ORDERED: ONDANSETRON 4 MG/2 ML INJ ONE (13:13)
[2020-05-20] MEDS ORDERED: ONDANSETRON 4 MG/2 ML INJ IV PRN (13:44)
[2020-05-20] MEDS: fentaNYL 100 MCG/2 ML INJ IV PRN ×4 (14:04→15:03)
[2020-05-20 15:35] VITALS: BP 159/73
--- NOTE | 2020-05-20 15:53 | Discharge Summary ---
Short Stay Discharge Plan Activity: other (no straining ) Weight Bearing Status: Full Weight Bearing Diet: low fat, low cholesterol, low salt Durable Medical Equipment Needed Upon Discharge: other (has j stent ) Follow up with: OMARI HENDRIX MD [Primary Care Provider] - 7 Days LUISA WEST MD [Staff Physician] - 7 Days
--- NOTE | 2020-05-20 15:54 | Post Operative Note ---
Date of procedure: 05/20/20 Pre-op diagnosis: r ureteral stone Post-op diagnosis: same Findings: as above Procedure: custo ureteroscopy rpg laser Anesthesia: GETA Surgeon: LUISA WEST Estimated blood loss: none Pathology: list (stone) Specimen disposition: given to patient/family Condition: stable Disposition: PACU
--- NOTE | 2020-05-20 16:07 | Operative Report ---
PREOPERATIVE DIAGNOSIS: Left distal ureteral stone. POSTOPERATIVE DIAGNOSES: Left distal ureteral stone. PROCEDURE: Cystoscopy, left retrograde, left ureteral balloon dilatation, left laser of stone, stone extraction, double-J stent. SURGEON: Dr. Lamb. ANESTHESIA: General. FINDINGS: This is a gentleman with severe left flank pain. He has been to the Emergency Room multiple times. He has a large stone, distal ureter, 8 mm. He now presents for treatment. DESCRIPTION OF PROCEDURE: The patient was brought to the operating room and placed on the operating table. Following induction of anesthesia, placed in lithotomy position, prepped and draped in usual sterile fashion. On the distribution agent film we could see the stone and a retrograde showed the stone well. There was some edema around the stone. A wire coiled in the kidney and balloon dilatation was carried out. Ureteroscopy showed the stone was too big to extract. We had to laser it into 3 or 4 pieces. The patient tolerated the procedure well. No significant complications. All the large pieces were extracted, placed in the bladder and irrigated out at the end. A double J coiled and we left the string. The patient tolerated the procedure well and brought to recovery in stable condition. JOB# [id number] ERICA/KERWIN
--- NOTE | 2020-05-20 17:01 | Post Anesthesia Evaluation ---
- Post Anesthesia Evaluation Patient Participated: Yes Airway Patent: Yes Stable Respiratory Function: Yes Nausea/Vomiting: No Temp > 96.8F: Yes Pain Manageable: Yes Adequeate Hydration: Yes Anesthesia Complications: No
--- NOTE | 2020-05-20 17:20 | Fluoroscopy Report ---
INTRAOPERATIVE FLUOROSCOPY: RETROGRADE UROGRAPHY AND LEFT EXISTING NEPHROSTOGRAM INDICATION / CLINICAL INFORMATION: HYDRONEPHROSIS, LT URETERAL STONE. TECHNIQUE: Intraoperative spot images were obtained during the procedure. FINDINGS: Retrograde injection of the left ureter demonstrates a dilated left ureter. Balloon dilatation of the distal left ureter was performed. A wire was advanced to the left renal collecting system. Left rio l collecting system appears within normal limits. Fluoroscopy Time: 1 minute 22 seconds. Fluoroscopy Images: 5. Signer Name: Radha Martinez MD Signed: 05/20/2020 5:15 PM Workstation Name: [id number]
== END 2020-05-20 16:15 | disposition home or self-care (01) ==
LOC: OR 09:34
PROVIDERS: ATTEND Urology
DX: N20.1 Calculus of ureter (principal); H40.9 Unspecified glaucoma; E78.00 Pure hypercholesterolemia, unspecified; E11.39 Type 2 diabetes mellitus with other diabetic ophthalmic complication; I10 Essential (primary) hypertension; G47.30 Sleep apnea, unspecified; E66.9 Obesity, unspecified; K21.9 Gastro-esophageal reflux disease without esophagitis; M19.90 Unspecified osteoarthritis, unspecified site; Z91.013 Allergy to seafood; Z91.041 Radiographic dye allergy status; Z79.84 Long term (current) use of oral hypoglycemic drugs; Z79.82 Long term (current) use of aspirin; Z86.2 Personal history of diseases of the blood and blood-forming organs and certain disorders involving the immune mechanism; Z88.8 Allergy status to other drugs, medicaments and biological substances
CPT/HCPCS: 50431; 52356; 74420; 82962; C1769; C2617; J1170; J1200; J2250; J2405; J2704; J3010; J7120; Q9967

== ENCOUNTER 2020-10-06 10:30 | Outpatient (CLI) | payer BC ==
[2020-10-06 11:32] LABS: Basophils % (Auto) 0.7 % (0.0-1.8); Eosinophils # (Auto) 0.2 K/mm3 (0.0-0.4); Eosinophils % (Auto) 3.9 % (0.0-4.3); Hematocrit 39.8 % (35.5-45.6); Hemoglobin 13.8 gm/dl (11.8-15.2); Lymphocytes # (Auto) 1.4 K/mm3 (1.2-5.4); Lymphocytes % (Auto) 22.4 % (13.4-35.0); Mean Corpuscular HGB Conc 35 % (32-34); Mean Corpuscular Volume 80 fl (84-94); Monocytes # (Auto) 0.5 K/mm3 (0.0-0.8); Monocytes % (Auto) 7.8 % (0.0-7.3); Platelet Count 203 K/mm3 (140-440); Red Blood Count 4.98 M/mm3 (3.65-5.03); Red Cell Distribution Width 13.8 % (13.2-15.2)
[2020-10-06 13:05] LABS: Alanine Aminotransferase 49 units/L (7-56); Albumin 4.4 g/dL (3.9-5); BUN/Creatinine Ratio 8; Blood Urea Nitrogen 10 mg/dL (9-20); Calcium 10.6 mg/dL (8.4-10.2); Chol/HDL Ratio 2.89 %; HDL Cholesterol 49 mg/dL (40-59); Hemolysis Index 4; LDL Cholesterol,Direct 77 mg/dL (50-130)
== END 2020-10-06 10:31 | disposition home or self-care (01) ==
LOC: LAB 10:30
PROVIDERS: ATTEND Internal Medicine
DX: I10 Essential (primary) hypertension (principal); E78.2 Mixed hyperlipidemia
CPT/HCPCS: 36415; 80053; 80061; 85025

== ENCOUNTER 2021-04-06 11:02 | Outpatient (CLI) | payer BC ==
--- NOTE | 2021-04-06 13:36 | XRay Report ---
BILATERAL KNEES 3 VIEWS INDICATION: Bilateral knee pain. COMPARISON: None. IMPRESSION: No acute osseous or soft tissue abnormality. No significant DJD. RIGHT ELBOW 3 VIEWS INDICATION: Right elbow pain. COMPARISON: None. IMPRESSION: No acute osseous or soft tissue abnormality. No significant DJD. Signer Name: Alber Raymond Jr, MD Signed: 04/06/2021 1:31 PM Workstation Name: [id number]
== END 2021-04-06 11:03 | disposition home or self-care (01) ==
LOC: XRAY 11:02
PROVIDERS: ATTEND Internal Medicine
DX: M25.562 Pain in left knee (principal); M25.561 Pain in right knee; M25.521 Pain in right elbow
CPT/HCPCS: 36415; 84153; 84443

== ENCOUNTER 2021-10-04 11:13 | Outpatient (CLI) | payer BC ==
[2021-10-04 12:04] LABS: Basophils % (Auto) 0.7 % (0.0-1.8); Eosinophils # (Auto) 0.2 K/mm3 (0.0-0.4); Eosinophils % (Auto) 3.4 % (0.0-4.3); Hematocrit 43.1 % (35.5-45.6); Hemoglobin 13.7 gm/dl (11.8-15.2); Lymphocytes # (Auto) 1.6 K/mm3 (1.2-5.4); Lymphocytes % (Auto) 27.8 % (13.4-35.0); Mean Corpuscular HGB Conc 32 % (32-34); Mean Corpuscular Volume 81 fl (84-94); Monocytes # (Auto) 0.5 K/mm3 (0.0-0.8); Platelet Count 213 K/mm3 (140-440); Red Blood Count 5.34 M/mm3 (3.65-5.03); Red Cell Distribution Width 14.1 % (13.2-15.2)
[2021-10-04 12:46] LABS: Alanine Aminotransferase 54 units/L (7-56); Albumin 4.4 g/dL (3.9-5); BUN/Creatinine Ratio 11; Blood Urea Nitrogen 12 mg/dL (9-20); Calcium 9.7 mg/dL (8.4-10.2); Chol/HDL Ratio 3.19 %; HDL Cholesterol 42 mg/dL (40-59); Hemolysis Index 2; LDL Cholesterol,Direct 71 mg/dL (50-130)
== END 2021-10-04 11:14 | disposition home or self-care (01) ==
LOC: LAB 11:13
PROVIDERS: ATTEND Internal Medicine
DX: E78.2 Mixed hyperlipidemia (principal)
CPT/HCPCS: 36415; 80053; 80061; 85025

== ENCOUNTER 2022-04-07 08:20 | Outpatient (CLI) | payer BC ==
[2022-04-07 08:53] LABS: Basophils % (Auto) 0.5 % (0.0-1.8); Eosinophils # (Auto) 0.2 K/mm3 (0.0-0.4); Eosinophils % (Auto) 2.5 % (0.0-4.3); Hematocrit 41.1 % (35.5-45.6); Hemoglobin 13.5 gm/dl (11.8-15.2); Lymphocytes # (Auto) 1.5 K/mm3 (1.2-5.4); Lymphocytes % (Auto) 25.6 % (13.4-35.0); Mean Corpuscular HGB Conc 33 % (32-34); Mean Corpuscular Volume 80 fl (84-94); Monocytes # (Auto) 0.5 K/mm3 (0.0-0.8); Monocytes % (Auto) 9.1 % (0.0-7.3); Platelet Count 184 K/mm3 (140-440); Red Blood Count 5.11 M/mm3 (3.65-5.03); Red Cell Distribution Width 14.4 % (13.2-15.2)
[2022-04-07 09:29] LABS: Alanine Aminotransferase 55 units/L (7-56); Albumin 4.3 g/dL (3.9-5); BUN/Creatinine Ratio 15; Blood Urea Nitrogen 17 mg/dL (9-20); Calcium 9.7 mg/dL (8.4-10.2); Chol/HDL Ratio 2.92 %; HDL Cholesterol 40 mg/dL (40-59); Hemolysis Index 6; LDL Cholesterol,Direct 62 mg/dL (50-130)
== END 2022-04-07 08:21 | disposition home or self-care (01) ==
LOC: LAB 08:20
PROVIDERS: ATTEND Nurse Practitioner Family
DX: I10 Essential (primary) hypertension (principal); E78.2 Mixed hyperlipidemia
CPT/HCPCS: 36415; 80053; 80061; 85025

== ENCOUNTER 2022-04-10 07:07 | Emergency (ER) | payer BC ==
[2022-04-10 07:42] VITALS: BP 154/78
--- NOTE | 2022-04-10 08:43 | Emergency Department Report ---
ED General Adult HPI - General Chief complaint: Back Pain/Injury Stated complaint: KIDNEY STONE Time Seen by Provider: 04/10/22 08:18 Source: patient, RN notes reviewed, old records reviewed Mode of arrival: Ambulatory Limitations: No Limitations - History of Present Illness Initial comments: The patient was evaluated in the emergency department for symptoms described in the history of present illness. He/she was evaluated in the context of the global COVID-19 pandemic, which necessitated consideration that the patient might be at risk for infection with the virus that causes COVID-19. Institutional protocols and algorithms that pertain to the evaluation of patients at risk for COVID-19 are in a state of rapid change based on information released by regulatory bodies including the CDC and federal and state organizations. These policies and algorithms were followed during the patient's care in the emergency department. Please note that these policies, procedures and recommendations changed on a rapid basis. This is a pleasant and cooperative 56-year-old gentleman whom I evaluated in the past. He typically follows with [facility]. He has a known history of renal colic. His last episode of renal colic is 2 years ago. He presents to the department today with a complaint of resolved renal colic. He states that he was working last night, and developed his typical left-sided paralumbar back pain that radiated into his left flank, with associated red urine. This lasted for a few minutes, and it is now resolved. He currently denies all injuries and complaints. He specifically denies headache, neck pain, chest pain, abdominal pain, nausea, vomiting, dysuria, and testicular pain. He has follow-up with outpatient [facility] later on this week. He reports that he can take Toradol, Flomax, and morphine. -: This morning Location: abdomen Radiation: abdomen, flank Severity scale (0 -10): 6 Consistency: now resolved Improves with: none Worsens with: none Associated Symptoms: denies other symptoms - Related Data Home Medications Medication Instructions Recorded Confirmed Last Taken Aspirin [Aspirin BABY CHEW TAB] 81 mg PO QDAY 02/17/16 05/19/20 05/18/20 08:00 Metoprolol [Lopressor] 100 mg PO DAILY 02/17/16 05/20/20 05/20/20 05:00 Rosuvastatin Calcium [Crestor] 40 mg PO DAILY 02/17/16 05/20/20 05/19/20 08:00 Cholecalciferol (Vitamin D3) 2,000 unit PO QDAY 05/19/20 05/20/20 05/19/20 08:00 [Vitamin D3 2,000 UNIT CAP] Morphine [Morphine TAB] 15 mg PO PRN PRN 05/19/20 05/20/20 05/20/20 01:00 Vitamin B Complex [Super B-50 1 each PO DAILY 05/19/20 05/20/20 05/19/20 08:00 Complex] lisinopriL [Zestril] 20 mg PO QDAY 05/19/20 05/20/20 05/19/20 08:00 metFORMIN [Glucophage] 500 mg PO BID 05/19/20 05/20/20 05/19/20 08:00 Previous Rx's Medication Instructions Recorded Last Taken Type Pantoprazole [Protonix TAB] 40 mg PO QDAY #30 tablet 12/13/17 Unknown Rx Ondansetron [Zofran Odt] 4 mg PO Q4HR PRN #20 tab.rapdis 07/03/19 05/16/20 08:00 Rx Ketorolac [Toradol] 10 mg PO Q6H PRN #20 tablet 04/12/20 Unknown Rx Ondansetron [Zofran Odt] 4 mg PO Q6HR PRN #20 tab.rapdis 04/12/20 Unknown Rx Sulfamethoxazole/Trimethoprim 1 each PO BID #20 tablet 04/12/20 Unknown Rx [Bactrim DS TAB] Tamsulosin [Flomax] 0.4 mg PO QDAY #14 cap 04/12/20 Unknown Rx Morphine Sulfate [Morphine Sulfate 7.5 mg PO Q6HR PRN #10 tablet 05/17/20 Unknown Rx IR] Ondansetron (Nf) [Zofran TAB] 4 mg PO Q6HR PRN #10 tablet 05/17/20 Unknown Rx Ketorolac [Toradol] 10 mg PO Q6H PRN #20 tablet 04/10/22 Unknown Rx Morphine Sulfate [Morphine Sulfate 7.5 mg PO Q6HR PRN #10 tablet 04/10/22 Unknown Rx IR] Ondansetron [Zofran Odt] 4 mg PO Q8HR PRN #20 tab.rapdis 04/10/22 Unknown Rx Tamsulosin [Flomax] 0.4 mg PO QHS #30 cap 04/10/22 Unknown Rx Allergies Allergy/AdvReac Type Severity Reaction Status Date / Time acetaminophen [From Percocet] Allergy Unknown Verified 01/26/22 05:58 iodine Allergy Hives Verified 01/26/22 05:58 oxycodone [From Percocet] Allergy Unknown Verified 01/26/22 05:58 oxycodone HCl [From Percocet] Allergy HALLUCINATI Verified 01/26/22 05:58 ONS shellfish derived Allergy Hives Verified 01/26/22 05:58 ED Review of Systems ROS: Stated complaint: KIDNEY STONE Other details as noted in HPI Comment: All other systems reviewed and negative ED Past Medical Hx - Past Medical History Previous Medical History?: Yes Hx Hypertension: Yes Hx Heart Attack/AMI: Yes Hx Diabetes: Yes Hx GERD: Yes (PRN MEDS) Hx Arthritis: Yes Hx Kidney Stones: Yes Hx Tuberculosis: Yes (2001-POSITIVE SKIN TEST,NO TX , CXR NEGATIVE) Hx HIV: No Additional medical history: high choles - Surgical History Past Surgical History?: Yes Additional Surgical History: hernia. kidney stones - Social History Smoking Status: Never Smoker - Medications Home Medications: Home Medications Medication Instructions Recorded Confirmed Last Taken Type Aspirin [Aspirin BABY CHEW TAB] 81 mg PO QDAY 02/17/16 05/19/20 05/18/20 08:00 History Metoprolol [Lopressor] 100 mg PO DAILY 02/17/16 05/20/20 05/20/20 05:00 History Rosuvastatin Calcium [Crestor] 40 mg PO DAILY 02/17/16 05/20/20 05/19/20 08:00 History Pantoprazole [Protonix TAB] 40 mg PO QDAY #30 tablet 12/13/17 Unknown Rx Ondansetron [Zofran Odt] 4 mg PO Q4HR PRN #20 tab.rapdis 07/03/19 05/20/20 05/16/20 08:00 Rx Ketorolac [Toradol] 10 mg PO Q6H PRN #20 tablet 04/12/20 Unknown Rx Ondansetron [Zofran Odt] 4 mg PO Q6HR PRN #20 tab.rapdis 04/12/20 Unknown Rx Sulfamethoxazole/Trimethoprim 1 each PO BID #20 tablet 04/12/20 Unknown Rx [Bactrim DS TAB] Tamsulosin [Flomax] 0.4 mg PO QDAY #14 cap 04/12/20 Unknown Rx Morphine Sulfate [Morphine Sulfate 7.5 mg PO Q6HR PRN #10 tablet 05/17/20 Unknown Rx IR] Ondansetron (Nf) [Zofran TAB] 4 mg PO Q6HR PRN #10 tablet 05/17/20 Unknown Rx Cholecalciferol (Vitamin D3) 2,000 unit PO QDAY 05/19/20 05/20/20 05/19/20 08:00 History [Vitamin D3 2,000 UNIT CAP] Morphine [Morphine TAB] 15 mg PO PRN PRN 05/19/20 05/20/20 05/20/20 01:00 History Vitamin B Complex [Super B-50 1 each PO DAILY 05/19/20 05/20/20 05/19/20 08:00 History Complex] lisinopriL [Zestril] 20 mg PO QDAY 05/19/20 05/20/20 05/19/20 08:00 History metFORMIN [Glucophage] 500 mg PO BID 05/19/20 05/20/20 05/19/20 08:00 History Ketorolac [Toradol] 10 mg PO Q6H PRN #20 tablet 04/10/22 Unknown Rx Morphine Sulfate [Morphine Sulfate 7.5 mg PO Q6HR PRN #10 tablet 04/10/22 Unknown Rx IR] Ondansetron [Zofran Odt] 4 mg PO Q8HR PRN #20 tab.rapdis 04/10/22 Unknown Rx Tamsulosin [Flomax] 0.4 mg PO QHS #30 cap 04/10/22 Unknown Rx ED Physical Exam - General Limitations: No Limitations General appearance: alert, in no apparent distress, obese - Head Head exam: Present: atraumatic, normocephalic - Eye Eye exam: Present: normal appearance, EOMI. Absent: nystagmus - ENT ENT exam: Present: normal exam, normal orophraynx, mucous membranes moist, normal external ear exam - Neck Neck exam: Present: normal inspection, full ROM. Absent: tenderness, meningismus - Respiratory Respiratory exam: Present: normal lung sounds bilaterally. Absent: respiratory distress, wheezes, rales, rhonchi, stridor, decreased breath sounds - Cardiovascular Cardiovascular Exam: Present: regular rate, normal rhythm, normal heart sounds. Absent: bradycardia, tachycardia, irregular rhythm, systolic murmur, diastolic murmur, rubs, gallop - GI/Abdominal GI/Abdominal exam: Present: soft, normal bowel sounds. Absent: distended, tenderness, guarding, rebound, rigid, pulsatile mass - Rectal Rectal exam: Present: deferred - exam: Present: normal inspection (Patient provides consent for genital ex amination), other (There is normal testicular lie. There is normal cremasteric reflex. There is no testicular tenderness. There is no testicular swelling). Absent: testicular tenderness, urethral discharge, scrotal swelling, vertical testicular lie External exam: Present: normal external exam, other (Chaperoned by wort extractor Carmella). Absent: erythema, swelling, lacerations, ecchymosis - Extremities Exam Extremities exam: Present: normal inspection, full ROM, normal capillary refill, other (2+ pulses noted in the bilateral upper and lower extremities. There is no palpable cord. negative Homans sign. Muscular compartments are soft. The pelvis is stable.). Absent: tenderness, pedal edema, joint swelling, calf tenderness - Back Exam Back exam: Present: normal inspection. Absent: tenderness, CVA tenderness (R), CVA tenderness (L), paraspinal tenderness, vertebral tenderness - Neurological Exam Neurological exam: Present: alert, oriented X3, normal gait, other (No facial droop. Tongue midline. Extraocular movements intact bilaterally. Facial sensation intact to light touch in V1, V2, V3 distribution bilaterally. 5 and a 5 strength in 4 extremities. Sensation intact to light touch in 4 extremities.). Absent: motor sensory deficit - Psychiatric Psychiatric exam: Present: normal affect, normal mood - Skin Skin exam: Present: warm, dry, intact, normal color. Absent: rash ED Course Vital Signs 04/10/22 07:41 Temperature 98.4 F Pulse Rate 70 Respiratory 20 Rate Blood Pressure 154/78 [Right] O2 Sat by Pulse 97 Oximetry ED Medical Decision Making - Lab Data Vital Signs 04/10/22 07:41 Temperature 98.4 F Pulse Rate 70 Respiratory 20 Rate Blood Pressure 154/78 [Right] O2 Sat by Pulse 97 Oximetry Lab Results 04/10/22 Range/Units 07:40 Urine Color Straw (Yellow) Urine Turbidity Clear (Clear) Urine pH 7.0 (5.0-7.0) Ur Specific [place] 1.002 L (1.003-1.030) Urine Protein <15 mg/dl (Negative) mg/dL Urine Glucose (UA) Neg (Negative) mg/dL Urine Ketones Neg (Negative) mg/dL Urine Blood Lg (Negative) Urine Nitrite Neg (Negative) Urine Bilirubin Neg (Negative) Urine Urobilinogen < 2.0 (<2.0) mg/dL Ur Leukocyte Esterase Neg (Negative) Urine WBC (Auto) < 1.0 (0.0-6.0) /HPF Urine RBC (Auto) 2.0 (0.0-6.0) /HPF Urine Bacteria (Auto) 1+ (Negative) /HPF Urine Mucus Few /HPF - Radiology Data Radiology results: pending, report reviewed, image reviewed Per imaging studies are reviewed and appreciated - Medical Decision Making Differential diagnosis, include but not limited to: Renal colic, now resolved Assessment and plan: 56-year-old gentleman, with a benign and unremarkable physical examination, who is afebrile, with reassuring vital signs, who is presenting to the department today with a complaint that appears to be consistent with resolved renal colic. Extensive discussion had with patient. He does not want to have CT scan abdomen pelvis out of concern for radiation. I would not medically recommend 1, and I am agreement with this plan of care, especially as per the choosing wisely recommendations. He denies irritative and obstructive urinary symptoms, and his urinalysis is not consistent with acute infectious pathology. 1+ bacteriuria appreciated. Suspect that patient passed kidney stone into his bladder at this time Patient reports he is going to follow-up with his outpatient urologist later on this week. He reports that he can tolerate Flomax, Toradol, and morphine. He is observed in this department for hours without clinical decompensation. He understands return precautions. All questions answered. Critical care attestation.: If time is entered above; I have spent that time in minutes in the direct care of this critically ill patient, excluding procedure time. ED Disposition Clinical Impression: Renal colic on left side Disposition: 01 HOME / SELF CARE / HOMELESS Is pt being admited?: No Does the pt Need Aspirin: No Condition: Good Instructions: Kidney Stones, [id number] Additional Instructions: Please drink 4 to 6 cups of water per day. Please avoid consumption of heavy and spicy foods, and excessive salt. Take the morphine and or ketorolac as needed for severe breakthrough pain. Take the Flomax at night as directed. Take Zofran as needed for nausea and vomiting. Follow-up with your urologist within the next 5 to 7 days. Please return to the emergency room right away with new pain, worsened pain, m igration of pain, projectile vomiting, change in mental status, confusion, inability tolerate liquid feeds, new, worsened or different symptoms not present on the initial emergency room evaluation Referrals: [facility] [Provider Group] - 7-10 days Forms: Work/School Release Form
[2022-04-10 09:30] LABS: Bacteria,Urine 1+ /HPF (Negative); Bilirubin,Urine NEG (Negative); Blood,Urine LG (Negative); Color,Urine Straw (Yellow); Mucus,Urine FEW /HPF; Protein,Urine <15 mg/dL mg/dL (Negative); Urobilinogen,Urine < 2.0 mg/dL (<2.0); WBC,Urine < 1.0 /HPF (0.0-6.0)
== END 2022-04-10 10:48 | disposition home or self-care (01) ==
LOC: ED 07:07
DX: N23 Unspecified renal colic (principal); I10 Essential (primary) hypertension; I21.9 Acute myocardial infarction, unspecified; E11.9 Type 2 diabetes mellitus without complications; K21.9 Gastro-esophageal reflux disease without esophagitis; M19.90 Unspecified osteoarthritis, unspecified site; N20.0 Calculus of kidney; Z98.890 Other specified postprocedural states; Z88.6 Allergy status to analgesic agent; Z91.013 Allergy to seafood; Z88.8 Allergy status to other drugs, medicaments and biological substances; Z91.09 Other allergy status, other than to drugs and biological substances; Z79.899 Other long term (current) drug therapy
CPT/HCPCS: 81001; 99283

== ENCOUNTER 2022-04-11 11:45 | Outpatient (CLI) | payer BC ==
--- NOTE | 2022-04-11 14:12 | Cat Scan Report ---
CT ABDOMEN AND PELVIS WITHOUT CONTRAST INDICATION / CLINICAL INFORMATION: N20.0 CALCULUS OF KIDNEY. TECHNIQUE: Axial CT images were obtained through the abdomen and pelvis without IV contrast. Sagittal and moreno l reformatted images. All CT scans at this location are performed using CT dose reduction for ALARA b y means of automated exposure control. COMPARISON: 04/11/2020 FINDINGS: LOWER CHEST: No significant abnormality. LIVER: Liver parenchyma is mildly hypodense. No enlargement or focal mass. GALLBLADDER: No significant abnormality. BILE DUCTS: No significant abnormality. PANCREAS: No significant abnormality. SPLEEN: No significant abnormality. ADRENALS: No significant abnormality. RIGHT KIDNEY and URETER: 2 punctate calyceal stones are identified at the lower pole of the right kid fredy. No ureteral stones or hydronephrosis. No focal renal lesion on noncontrast CT. LEFT KIDNEY and URETER: A moderate to large stone is identified at the left UVJ measuring 5.2 x 4.2 x 3.8 mm. There also appears to be a second punctate stone in the distal left ureter on image 157. The re is moderate left hydronephrosis. No calyceal stones are appreciated in the left kidney. No focal r enal lesion on noncontrast CT. STOMACH and SMALL BOWEL: No significant abnormality. COLON: No significant abnormality. APPENDIX: No significant abnormality. PERITONEUM: No free fluid. No free air. No fluid collection. LYMPH NODES: No significant adenopathy. AORTA and ARTERIES: Mild atherosclerotic calcification without acute abnormality. IVC and VEINS: No significant abnormality. URINARY BLADDER: The bladder is empty but grossly unremarkable. REPRODUCTIVE ORGANS: No significant abnormality. ADDITIONAL FINDINGS: None. SKELETAL SYSTEM: Mild lumbar spondylosis. No acute abnormality or bone lesion. IMPRESSION: There appear to be 2 distal left ureteral stones as outlined above. Moderate left hydronephrosis. Punctate calyceal stones in the right kidney, nonobstructing. Mild hepatic steatosis. Signer Name: Alber Raymond Jr, MD Signed: 04/11/2022 2:08 PM Workstation Name: [id number]
== END 2022-04-11 11:46 | disposition home or self-care (01) ==
LOC: XRAY 11:45
DX: N20.2 Calculus of kidney with calculus of ureter (principal); N13.30 Unspecified hydronephrosis; I70.0 Atherosclerosis of aorta; K76.0 Fatty (change of) liver, not elsewhere classified; M47.817 Spondylosis without myelopathy or radiculopathy, lumbosacral region
CPT/HCPCS: 74176

== ENCOUNTER 2022-04-18 10:40 | Day surgery (SDC) | payer BC ==
[2022-04-18] MEDS ORDERED: LACTATED RINGERS 1,000 ML ONE (11:20)
[2022-04-18] MEDS ORDERED: propofoL 200 MG/20 ML VIAL IV ONE (11:46)
[2022-04-18] MEDS ORDERED: LIDOCAINE PF 100 MG/5 ML (CARDIAC SYRINGE) IV ONE (11:46)
[2022-04-18] MEDS ORDERED: fentaNYL 100 MCG/2 ML INJ ONE (11:46)
[2022-04-18] MEDS ORDERED: LACTATED RINGERS 1,000 ML IV SCH (13:00)
--- NOTE | 2022-04-18 13:19 | Cat Scan Report ---
CT ABDOMEN AND PELVIS WITHOUT CONTRAST INDICATION / CLINICAL INFORMATION: KIDNEY STONE EVALUATION. TECHNIQUE: Axial CT images were obtained through the abdomen and pelvis without IV contrast. Sagittal and moreno l reformatted images. All CT scans at this location are performed using CT dose reduction for ALARA b y means of automated exposure control. COMPARISON: 04/11/2022 FINDINGS: LOWER CHEST: No significant abnormality. LIVER: Stable mild hepatic steatosis. GALLBLADDER: No significant abnormality. BILE DUCTS: No significant abnormality. PANCREAS: No significant abnormality. SPLEEN: No significant abnormality. ADRENALS: No significant abnormality. RIGHT KIDNEY and URETER: 2 punctate stones at the lower pole of the right kidney are again noted and unchanged. No focal right renal lesion, ureteral stone or hydronephrosis. LEFT KIDNEY and URETER: Previously described distal left ureteral stones are no longer seen. A puncta te calyceal stone is identified in the mid to superior left kidney on today's exam. No hydronephrosis or focal renal lesion. STOMACH and SMALL BOWEL: No significant abnormality. COLON: No significant abnormality. APPENDIX: No significant abnormality. PERITONEUM: No free fluid. No free air. No fluid collection. LYMPH NODES: No significant adenopathy. AORTA and ARTERIES: Mild atherosclerotic calcification without acute abnormality. IVC and VEINS: No significant abnormality. URINARY BLADDER: No significant abnormality. REPRODUCTIVE ORGANS: No significant abnormality. ADDITIONAL FINDINGS: None. SKELETAL SYSTEM: Stable mild lumbar spondylosis. IMPRESSION: Punctate bilateral renal stones, nonobstructing. Nonobstructing stones in the distal left ureter seen on the previous exam have passed or been removed . Stable mild hepatic steatosis. No new acute process is appreciated. Signer Name: Alber Raymond Jr, MD Signed: 04/18/2022 1:15 PM Workstation Name: [id number]
[2022-04-18 14:39] VITALS: BP 99/66
== END 2022-04-18 10:41 | disposition home or self-care (01) ==
LOC: OR 10:40
PROVIDERS: ATTEND Urology
DX: N20.0 Calculus of kidney (principal); H40.9 Unspecified glaucoma; E78.00 Pure hypercholesterolemia, unspecified; I10 Essential (primary) hypertension; E66.9 Obesity, unspecified; K21.9 Gastro-esophageal reflux disease without esophagitis; M19.90 Unspecified osteoarthritis, unspecified site; E11.9 Type 2 diabetes mellitus without complications; Z53.8 Procedure and treatment not carried out for other reasons; Z20.822 Contact with and (suspected) exposure to COVID-19; Z91.041 Radiographic dye allergy status; Z88.8 Allergy status to other drugs, medicaments and biological substances; Z91.013 Allergy to seafood; Z79.84 Long term (current) use of oral hypoglycemic drugs; Z79.82 Long term (current) use of aspirin; Z79.899 Other long term (current) drug therapy; Z86.79 Personal history of other diseases of the circulatory system; Z68.36 Body mass index [BMI] 36.0-36.9, adult; Z86.2 Personal history of diseases of the blood and blood-forming organs and certain disorders involving the immune mechanism
CPT/HCPCS: 36415; 74176; 82365; 82962; J2001; J2704; J3010; J7120; U0003

== ENCOUNTER 2022-07-07 08:57 | Outpatient (CLI) | payer BC ==
[2022-07-07 09:34] LABS: Basophils % (Auto) 0.7 % (0.0-1.8); Eosinophils # (Auto) 0.1 K/mm3 (0.0-0.4); Eosinophils % (Auto) 2.5 % (0.0-4.3); Hematocrit 41.8 % (35.5-45.6); Lymphocytes # (Auto) 1.3 K/mm3 (1.2-5.4); Lymphocytes % (Auto) 21.7 % (13.4-35.0); Mean Corpuscular HGB Conc 34 % (32-34); Mean Corpuscular Volume 80 fl (84-94); Monocytes # (Auto) 0.6 K/mm3 (0.0-0.8); Monocytes % (Auto) 9.3 % (0.0-7.3); Platelet Count 194 K/mm3 (140-440); Red Cell Distribution Width 14.6 % (13.2-15.2)
[2022-07-07 10:14] LABS: Alanine Aminotransferase 78 units/L (7-56); Albumin 4.7 g/dL (3.9-5); BUN/Creatinine Ratio 11; Blood Urea Nitrogen 10 mg/dL (9-20); Calcium 9.7 mg/dL (8.4-10.2); HDL Cholesterol 43 mg/dL (40-59); Hemolysis Index 8; LDL Cholesterol,Direct 77 mg/dL (50-130)
== END 2022-07-07 08:58 | disposition home or self-care (01) ==
LOC: LAB 08:57
PROVIDERS: ATTEND Nurse Practitioner Family
DX: I10 Essential (primary) hypertension (principal); E78.2 Mixed hyperlipidemia
CPT/HCPCS: 36415; 80053; 80061; 85025